=== PATIENT | male | born 1985 | race Caucasian/White ===

== ENCOUNTER 2017-05-25 21:24 | Emergency (ER) | payer OTHER ==
[2017-05-25 21:36] VITALS: BP 113/73; TEMP 97.5; O2SAT 96
--- NOTE | 2017-05-25 21:56 | EDPHY ---
H & P Stated Complaint: MED CLEAR FOR LONG-TERM Time Seen by Provider: 05/25/17 21:52 HPI/ROS: Chief Complaint: Medical clearance, methamphetamine and cocaine use HPI: 32-year-old male being brought in by police for evaluation for medical clearance. Patient has been aggressive and agitated. Admits to using methamphetamine and cocaine recently. Patient is awake and oriented to person place and time. Denies falls or head injuries. Is currently complaining of feeling the need to urinate. No difficulty urinating or urgency or frequency. No fevers or chills. No abdominal pain. No extremity injuries. Otherwise without complaint. He is brought in for medical clearance ROS: 10 point Review of Systems is negative except as noted in the HPI. PMH: Polysubstance abuse Social History: Positive smoking, positive alcohol, positive for methamphetamine and cocaine Family History: non-contributory Physical Exam: Gen: Awake, Alert, No Distress, agitated, confrontational HEENT: Nose: no rhinorrhea Eyes: PERRLA, EOMI Mouth: Moist mucosa Neck: Supple, no JVD Chest: nontender, lungs clear to auscultation Heart: S1, S2 normal, no murmur Abd: Soft, non-tender, no guarding Back: no CVA tenderness, no midline tenderness Ext: no edema, non-tender Skin: no rash Neuro: CN II-XII intact, Sensation grossly intact, Strength 5/5 in bilateral upper and lower extremities - Personal History Current Tetanus/Diphtheria Vaccine: Yes Current Tetanus Diphtheria and Acellular Pertussis (TDAP): Yes - Medical/Surgical History Hx Asthma: No Hx Chronic Respiratory Disease: No Hx Diabetes: No Hx Cardiac Disease: No Hx Renal Disease: No Hx Cirrhosis: No Hx Alcoholism: No Hx HIV/AIDS: No Hx Splenectomy or Spleen Trauma: No Other PMH: DENIES - Social History Smoking Status: Current every day smoker Constitutional: Initial Vital Signs Temperature (C) 36.4 C 05/25/17 21:25 Heart Rate 120 H 05/25/17 21:25 Respiratory Rate 18 05/25/17 21:25 Blood Pressure 113/73 05/25/17 21:25 O2 Sat (%) 96 05/25/17 21:25 O2 Delivery Mode Room Air Allergies/Adverse Reactions: No Known Allergies Allergy (Unverified 05/25/17 21:36) Home Medications: Medication Instructions Recorded NK [No Known Home Meds] 05/25/17 Medical Decision Making ED Course/Re-evaluation: 32-year-old male with recent use of methamphetamine and cocaine who is agitated and brought in for medical clearance. He is awake and oriented acting otherwise appropriately. There is no evidence of acute medical problem. He is medically cleared for nursing home. Departure - Departure Disposition: Law Enforcement/Court/Prison Clinical Impression: Substance abuse Condition: Good Instructions: Polysubstance Abuse (ED) Additional Instructions: MEDICALLY CLEAR FOR LONG-TERM
[2017-05-25 21:59] VITALS: PULSE 106; RESP 20
== END 2017-05-25 21:57 ==
LOC: EDBD 21:24
DX: F19.10 Other psychoactive substance abuse, uncomplicated (principal); F17.200 Nicotine dependence, unspecified, uncomplicated

== ENCOUNTER 2017-06-03 04:38 | Emergency (ER) | payer OTHER ==
[2017-06-03 04:49] VITALS: BP 145/99; PULSE 86; RESP 16; TEMP 97.9; O2SAT 99
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
== END 2017-06-03 04:56 | disposition home or self-care (01) ==
PROC: 0CQ1XZZ Repair Lower Lip, External Approach (ICD-10-PCS; principal; 2017-06-03)
DX: S01.511A Laceration without foreign body of lip, initial encounter (principal); F17.200 Nicotine dependence, unspecified, uncomplicated; Y04.0XXA Assault by unarmed brawl or fight, initial encounter; Y92.149 Unspecified place in prison as the place of occurrence of the external cause

== ENCOUNTER 2017-09-24 11:32 | Emergency (ER) | payer MEDICAID ==
--- NOTE | 2017-09-24 11:42 | EDPHY ---
H & P Smoking Status: Current every day smoker Time Seen by Provider: 09/24/17 11:34 HPI/ROS: CHIEF COMPLAINT: M1 hold HISTORY OF PRESENT ILLNESS: 32-year-old male presents to the emergency department by ambulance on M1 hold. The patient made some homicidal statements while he was at [facility] and they placed him on a hold and brought to the emergency department for evaluation. The patient has a history of substance abuse however has not used methamphetamines since May. He denies homicidal or suicidal ideation now. He denies pain in his chest or difficulty breathing. Denies abdominal pain. No head injury. Currently he has no physical complaints. REVIEW OF SYSTEMS: Constitutional: No fever, no chills. Eyes: No double or blurry vision. ENT: No sore throat. Respiratory: No cough, no shortness of breath. Cardiac: No chest pain. Gastrointestinal: No abdominal pain, vomiting or diarrhea. Genitourinary: No dysuria. Musculoskeletal: No neck or back pain. Skin: No rashes. Neurological: No headache. (Rachell Agarwal) Past Medical/Surgical History: Substance abuse (Rachell Agarwal) Social History: Single (Rachell Agarwal) Physical Exam: General Appearance: Alert, no distress. Eyes: Pupils equal and round. Extraocular motions are all intact. ENT: Mouth: Mucous membranes moist. Respiratory: No wheezing, rhonchi, or rales, lungs are clear to auscultation. Cardiovascular: Regular rate and rhythm. Gastrointestinal: Abdomen is soft and nontender, no masses, no rebound or guarding, bowel sounds normal. Neurological: Alert and oriented x 3, cranial nerves II through XII grossly intact Skin: Warm and dry, no rashes. Musculoskeletal: Nontender to palpate along the cervical, thoracic or lumbar spine. Neck is supple. Extremities: Full range of motion and no peripheral edema. Psychiatric: Patient is oriented X 3, there is no agitation. (Rachell Agarwal) Constitutional: Initial Vital Signs Temperature (C) 37.2 C 09/24/17 11:32 Heart Rate 80 09/24/17 11:32 Respiratory Rate 16 09/24/17 11:32 Blood Pressure 125/75 H 09/24/17 11:32 O2 Sat (%) 94 09/24/17 11:32 O2 Delivery Mode Room Air Allergies/Adverse Reactions: shellfish derived Allergy (Verified 06/03/17 04:40) Home Medications: Medication Instructions Recorded NK [No Known Home Meds] 05/25/17 Medical Decision Making ED Course/Re-evaluation: The patient is on M1 hold. Laboratory studies have been ordered. The patient has been medically cleared. He was evaluated by mental health and will be kept on M1 hold and they are looking for inpatient placement. (Rachell Agarwal) Patient has remained stable under my care. Looking for inpatient placement ( Adrián Cavanaugh) 12:40 a.m.- I accepted sign-out on this patient at approximately 11:00 p.m.. He has been stable during this time. He has been accepted at [place] by Dr. Roche for further care. I have completed the EMTALA form. (Sully Palmer) Differential Diagnosis: Depression including functional and major depression, situational depression, medication side effect, drugs and alcohol abuse. (Rachell Agarwal) Care Turn Over: Care to Dr. Palmer at 11:00 p.m. (Adrián Cavanaugh) - Data Points Laboratory Results: Laboratory Results 09/24/17 11:45 09/24/17 11:45 Medications Given: Discontinued Medications Lorazepam (Ativan) 1 mg PO EDNOW ONE Stop: 09/24/17 16:09 Last Admin: 09/24/17 16:35 Dose: 1 mg Departure - Departure Disposition: Other Psych, Not Alberto Clinical Impression: Homicidal ideation Condition: Fair Referrals: Patient,NotPresent [Unknown] - As per Instructions
[2017-09-24 11:55] LABS: PLATELET COUNT 312 10^3/uL (150-400)
[2017-09-24] MEDS ORDERED: LORazepam 1 MG TAB PO ONE (16:08)
[2017-09-24 23:38] VITALS: BP 111/66
== END 2017-09-25 02:50 ==
LOC: EDUNIT#
DX: R45.850 Homicidal ideations (principal); F17.200 Nicotine dependence, unspecified, uncomplicated
CPT/HCPCS: 80305; G0480

== ENCOUNTER 2018-02-15 19:31 | Emergency (ER) | payer MEDICAID ==
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
[2018-02-15] MEDS ORDERED: NS 1,000 ML IV ONE (21:46)
[2018-02-15 22:15] LABS: PLATELET COUNT 322 10^3/uL (150-400)
[2018-02-15] MEDS ORDERED: ACETAMINOPHEN 500 MG TAB PO ONE (22:28)
[2018-02-15 23:41] VITALS: BP 119/72
== END 2018-02-15 23:39 | disposition home or self-care (01) ==
DX: S22.080A Wedge compression fracture of T11-T12 vertebra, initial encounter for closed fracture (principal); W00.0XXA Fall on same level due to ice and snow, initial encounter; V17 Pedal cycle rider injured in collision with fixed or stationary object; E86.9 Volume depletion, unspecified; F17.200 Nicotine dependence, unspecified, uncomplicated

== ENCOUNTER 2018-08-03 19:40 | Emergency (ER) | payer MEDICAID ==
[2018-08-03] MEDS ORDERED: HALOPERIDOL LACT 5 MG/ML INJ IM ONE ×2 (19:43→19:44)
--- NOTE | 2018-08-03 19:44 | EDPHY ---
H & P - Medical/Surgical History Hx Asthma: No Hx Chronic Respiratory Disease: No Hx Diabetes: No Hx Cardiac Disease: No Hx Renal Disease: No Hx Cirrhosis: No Hx Alcoholism: No Hx HIV/AIDS: No Hx Splenectomy or Spleen Trauma: No Other PMH: ADD, Anxiety, Depression, insomnia, substance abuse - Social History Smoking Status: Current every day smoker Time Seen by Provider: 08/03/18 19:44 HPI/ROS: CHIEF COMPLAINT: "They are going to kill me" HISTORY OF PRESENT ILLNESS: 33-year-old male arrives via EMS. History obtained primarily from EMS as patient is repeating the phrase "they are going to kill me" and I am unable to obtain any further history. Per EMS the patient was observed at the [facility] hiding the corner appeared anxious, crying, stating that people are out to kill him. In reviewing the patient's old medical records his history of polysubstance abuse as well as mental illness. There are no reports of trauma or fall by EMS. Was given 5 mg of Versed EN route with no significant moderation of symptoms. PRIMARY CARE PROVIDER: REVIEW OF SYSTEMS: 10 systems reviewed and negative with the exception of the elements mentioned in the history of present illness PAST MEDICAL & SURGICAL HISTORY: Prior polysubstance abuse history and mental illness history based on old medical record review SOCIAL HISTORY: Unable to assess due to agitation PHYSICAL EXAM (Prior to examination, patient consented to physical exam, hands were washed and my usual and customary physical exam procedures followed) 1) GENERAL: Poorly kept, dirty, foul-smelling, hiding in the corner appears to be responding to internal stimuli 2) HEAD: Normocephalic, atraumatic 3) HEENT: Pupils equal, round, reactive to light bilaterally. Sclera anicteric. No raccoon eyes no Truong sign. 4) NECK: Full range of motion, no meningeal signs. 5) LUNGS: Clear auscultation bilaterally, no wheezes, no rhonchi, no retractions. 6) HEART: Regular rate and rhythm, no murmur, no heave, no gallop. 7) ABDOMEN: No guarding, no rebound, no focal tenderness 8) MUSCULOSKELETAL: Moving all extremities, no focal areas of tenderness, no obvious trauma. No peripheral edema or discoloration. 9) BACK: No obvious trauma, no visual or palpable abnormality. 10) SKIN: No rash, no petechiae. 11) Psychiatric: Patient is agitated, hiding the corner, appears to be responding to internal stimuli DIFFERENTIAL DIAGNOSIS: In no particular orderincluding but not limited to hypoglycemia, infectious process, electrolyte abnormality, head injury and intoxicants. (Lisa Nguyen) Constitutional: Initial Vital Signs Temperature (C) 35.0 C L 08/03/18 19:51 Heart Rate 86 08/03/18 19:51 Respiratory Rate 18 08/03/18 19:51 Blood Pressure 113/72 08/03/18 19:51 O2 Sat (%) 94 08/03/18 19:51 O2 Delivery Mode Room Air Allergies/Adverse Reactions: aspirin Allergy (Intermediate, Verified 08/03/18 19:51) Wheezing ibuprofen Allergy (Intermediate, Verified 08/03/18 19:51) Hives shellfish derived Allergy (Intermediate, Verified 08/03/18 19:51) Hives Home Medications: Medication Instructions Recorded NK [No Known Home Meds] 05/25/17 Medical Decision Making ED Course/Re-evaluation: 7:44 p.m.: At this time I am unable to evaluate the patient appropriately. He is hiding in the corner of room 20. He will not allow me to approach him, he appears to be responding to internal stimuli. He will be given Haldol 8:00 p.m.: At this time I think the patient meets criteria for an M1 hold, specifically the patient is acutely gravely disabled. He appears to be responding to internal stimuli, I do not think he has capacity to make decisions in his own best interest at this time. Will placed on M1 hold and re- evaluated. 10:00 p.m.: Patient re-evaluated. Sleeping. Midnight: Care turned over to Dr. Fritz. Patient is sleeping and sobering. ( Lisa Nguyen) Other Provider: 2350 care assumed from SY Nguyen pending sober evaluation in the morning. [address] Adams pending sober evaluation. No issues during my care overnight. (Mando Fritz) I assumed care of this patient from Dr. Fritz at 7:00 a.m.. The patient underwent a mental health evaluation. It is felt that he has an antisocial personality disorder. He was intoxicated last night when he arrived who. The patient reports that he was just discharged from [facility] after 15 months. He has had at least 3 previous intermediate stents at other facilities. He has a history of alcohol and drug abuse in the past. He is currently homeless. He has agreed to follow up at [facility]. He is given referrals to [facility], , and [facility]. He is also referred to [facility] for ongoing health care. He is neither suicidal nor homicidal and the M1 hold was lifted. (Samantha Adams) - Data Points Laboratory Results: Laboratory Results 08/03/18 20:15 08/03/18 20:15 08/04/18 08/03/18 08/03/18 04:36 20:15 20:15 WBC 9.37 10^3/uL 10^3/uL (3.80-9.50) RBC 5.06 10^6/uL 10^6/uL (4.40-6.38) Hgb 16.8 g/dL g/dL (13.7-17.5) Hct 47.8 % % (40.0-51.0) MCV 94.5 fL fL (81.5-99.8) MCH 33.2 pg pg (27.9-34.1) MCHC 35.1 g/dL g/dL (32.4-36.7) RDW 12.2 % % (11.5-15.2) Plt Count 285 10^3/uL 10^3/uL (150-400) MPV 8.7 fL fL (8.7-11.7) Neut % (Auto) 67.9 % % (39.3-74.2) Lymph % (Auto) 26.0 % % (15.0-45.0) [place] % (Auto) 4.9 % % (4.5-13.0) Eos % (Auto) 0.3 % L % (0.6-7.6) Baso % (Auto) 0.6 % % (0.3-1.7) Nucleat RBC Rel Count 0.0 % % (0.0-0.2) Absolute Neuts (auto) 6.35 10^3/uL 10^3/uL (1.70-6.50) Absolute Lymphs (auto) 2.44 10^3/uL 10^3/uL (1.00-3.00) Absolute Monos (auto) 0.46 10^3/uL 10^3/uL (0.30-0.80) Absolute Eos (auto) 0.03 10^3/uL 10^3/uL (0.03-0.40) Absolute Basos (auto) 0.06 10^3/uL 10^3/uL (0.02-0.10) Absolute Nucleated RBC 0.00 10^3/uL 10^3/uL (0-0.01) Immature Gran % 0.3 % % (0.0-1.1) Immature Gran # 0.03 10^3/uL 10^3/uL (0.00-0.10) Sodium 139 mEq/L mEq/L (135-145) Potassium 3.6 mEq/L mEq/L (3.5-5.2) Chloride 101 mEq/L mEq/L (97-110) Carbon Dioxide 20 mEq/l L mEq/l (22-31) Anion Gap 18 mEq/L H mEq/L (6-14) BUN 9 mg/dL mg/dL (7-23) Creatinine 0.7 mg/dL mg/dL (0.7-1.3) Estimated GFR > 60 Glucose 105 mg/dL H mg/dL (70-100) Calcium 9.5 mg/dL mg/dL (8.5-10.4) Creatine Kinase 284 IU/L H IU/L (0-224) CK-MB (CK-2) Fraction 2.23 ng/mL ng/mL (0.00-4.55) CK-MB (CK-2) % 0.8 % % (0.0-4.0) Creatine Kinase Interp NEGATIVE (NEGATIVE) Salicylates < 1.0 mg/dL L mg/dL (2.0-20.0) Urine Opiates Screen NEGATIVE (NEGATIVE) Acetaminophen < 10 mcg/mL L mcg/mL (10-30) Urine Barbiturates NEGATIVE (NEGATIVE) Ur Phencyclidine Scrn NEGATIVE (NEGATIVE) Ur Amphetamine Screen NEGATIVE (NEGATIVE) U Benzodiazepines Scrn NEGATIVE (NEGATIVE) Urine Cocaine Screen NEGATIVE (NEGATIVE) U Marijuana (THC) Screen NEGATIVE (NEGATIVE) Ethyl Alcohol 232 mg/dL H mg/dL (0-10) Medications Given: Discontinued Medications Haloperidol Lactate (Haldol Injection) 5 mg IM EDNOW ONE Stop: 08/03/18 19:44 Last Admin: 08/03/18 20:10 Dose: Not Given Haloperidol Lactate (Haldol Injection) 10 mg IM EDNOW ONE Stop: 08/03/18 19:45 Last Admin: 08/03/18 19:49 Dose: 10 mg Departure - Departure Disposition: Home, Routine, Self-Care Clinical Impression: Antisocial personality disorder in adult Alcohol intoxication Qualifiers: Complication of substance-induced condition: uncomplicated Qualified Code(s): F10.920 - Alcohol use, unspecified with intoxication, uncomplicated Condition: Good Instructions: Alcohol Intoxication (ED), Abuse of Alcohol (ED) Referrals: [facility],. [Clinic] - As per Instructions AA Hotline [Outside] - As per Instructions [facility] 24 Hours [Outside] - As per Instructions [facility] [Outside] - As per Instructions
[2018-08-03 20:40] LABS: PLATELET COUNT 285 10^3/uL (150-400)
[2018-08-03 20:57] LABS: CREATINE KINASE 284 IU/L (0-224)
[2018-08-04 08:43] VITALS: BP 131/76
--- NOTE | 2018-08-04 09:59 | ASMTTCLDSP ---
TLC Discharge Disposition Disposition: Answers: Discharge If Answers: Yes DISCHARGED: Patient/family given suicide hotline info & [facility] brochure? Disposition Notes: Notes: Pt stated commitment or ability to keep self safe, denied thoughts of self harm or harm to others. Pt expressed a desire to f/u with [facility]. Pt was given local hotline information and [facility] brochure After an Attempt and encouraged to follow up with [facility]. Discharge Concerns/Recommendations: Notes: In consultation with [facility] ED physician, Samantha Adams MD, Dr. Adams concurred that pt does not appear to meet 27-65 criteria requiring psychiatric hospitalization as pt does not appear to be an imminent risk of harm to self/others/gravely disabled due to a mental illness condition. Dr. Adams provided verbal order read back vacating M1 hold at 0830 hrs. Was patient given the Answers: Not applicable Inpatient Behavioral Health Prohibited Belongings List while in the ED? Psychiatrist vacating M1 Samantha Adams MD Hold: Date and time M1 hold 08/04/2018 08:30 AM vacated (time format is hh:mm): Type of Hold: Answers: M1/72-hour Hold Hold initiated by: Answers: ED Physician Date Signed: 08/04/2018 09:58 AM Electronically Signed By:Layo Daniel
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
== END 2018-08-04 08:49 | disposition home or self-care (01) ==
LOC: EDUNIT#
DX: F10.920 Alcohol use, unspecified with intoxication, uncomplicated (principal); F60.2 Antisocial personality disorder
CPT/HCPCS: 80305; G0480; J1630